=== PATIENT | male | born 1945 | race Caucasian/White ===

== ENCOUNTER → 2017-08-24 | Outpatient (CLI) | payer MEDICARE | END | disposition home or self-care (01) | LOC: ECHO 12:44 | DX: I35.0 Nonrheumatic aortic (valve) stenosis (principal); I25.10 Atherosclerotic heart disease of native coronary artery without angina pectoris; I51.9 Heart disease, unspecified | CPT/HCPCS: 93306 ==

== ENCOUNTER → 2017-09-23 | Outpatient (CLI) | payer MEDICARE | END | disposition home or self-care (01) | LOC: NM 09:29 | DX: I38 Endocarditis, valve unspecified (principal) | CPT/HCPCS: 93017 ==

== ENCOUNTER → 2018-03-22 | Outpatient (CLI) | payer MEDICARE ==
--- NOTE | 2018-03-22 11:14 | CARD ---
MR#: [id number] Date of Study: 03/22/2018 Ordering Physician: LIZETT FRIAS, Referring Physician: LIZETT FRIAS, Tech: Marisela Banuelos APPROVED REPORT EXAM: Two-dimensional and M-mode echocardiogram with Doppler and color Doppler. Other Information Quality : AverageHR: 75bpm Technically limited study due to body habitus. INDICATION Valvular Heart Disease, Former Smoker (40 years) RISK FACTORS Diabetes 2D DIMENSIONS Left Atrium(2D)4.2 (1.6-4.0cm)IVSd1.0 (0.7-1.1cm) Aortic Root(2D)3.3 (2.0-3.7cm)LVDd5.0 (3.9-5.9cm) LVOT Diameter2.0 (1.8-2.4cm)PWd1.0 (0.7-1.1cm) LVDs3.3 (2.5-4.0cm)FS (%) 34.3 % SV74.0 mlLVEF(%)63.1 (>50%) Aortic Valve AoV Peak Florentin.284.4cm/sAoV VTI62.0cm AO Peak GR.32.4mmHgLVOT Peak Florentin.114.2cm/s AO Mean GR.18mmHgAVA (VMAX)1.27cm2 Mitral Valve MV E Hgryvivd690.1cm/sMV DECEL OIWR969hg MV A Jlisweat535.8cm/sE/A Ratio0.9 Tricuspid Valve TR P. Bkjpxwvy745vc/sRAP VCBZYGDS7utFv TR Peak Gr.12fkKzXRJE88xoYr Pulmonary Vein PVa dytgoxrw168aqiv LEFT VENTRICLE The left ventricle is normal size. There is normal left ventricular wall thickness. The left ventricu lar systolic function is normal and the ejection fraction is within normal range. The Ejection Fracti on is 55-60%. Septal motion suggestive of condution defect. Otherwise, grossly normal wall motion. Tr ansmitral Doppler flow pattern is Grade I-abnormal relaxation pattern. RIGHT VENTRICLE The right ventricle is normal size. There is normal right ventricular wall thickness. The right ventr icular systolic function is normal. ATRIA The left atrium size is normal. The right atrium size is normal. Atrial septum is not well visualized . AORTIC VALVE The aortic valve is thickened and calcified. Doppler and Color Flow revealed trace aortic regurgitati on. There is moderate valvular aortic stenosis. Calculated aortic valve area is 1.2 cm2 with maximum pressure gradient of 32.36 mmHg and mean pressure gradient of 18.47 mmHg. MITRAL VALVE The mitral valve has heavy annular calcification. Doppler and Color Flow revealed trace mitral regurg itation. TRICUSPID VALVE The tricuspid valve is normal in structure and function. Doppler and Color Flow revealed trace tricus pid regurgitation. There is no tricuspid valve stenosis. PULMONIC VALVE Doppler and Color Flow revealed no pulmonic valvular regurgitation. There is no pulmonic valvular aleena nosis. GREAT VESSELS The aortic root is normal in size. The IVC is normal in size and collapses >50% with inspiration. PERICARDIAL EFFUSION There is no evidence of significant pericardial effusion. Critical Notification Critical Value: No <Conclusion> The left ventricular systolic function is normal and the ejection fraction is within normal range. Th e Ejection Fraction is 55-60%. Septal motion suggestive of condution defect. Otherwise, grossly normal wall motion. There is moderate valvular aortic stenosis. Calculated aortic valve area is 1.2 cm2 with maximum pre ssure gradient of 32.36 mmHg and mean pressure gradient of 18.47 mmHg. Technically difficult study. Signed by : Lizett Frias, Electronically Approved : 03/22/2018 11:13:46
== END | disposition home or self-care (01) ==
LOC: ECHO 08:49
PROVIDERS: ATTEND Internal Medicine Cardiovascular Disease
DX: I35.0 Nonrheumatic aortic (valve) stenosis (principal); E11.9 Type 2 diabetes mellitus without complications; Z87.891 Personal history of nicotine dependence
CPT/HCPCS: 93306

== ENCOUNTER → 2019-03-29 | Outpatient (CLI) | payer MEDICARE ==
--- NOTE | 2019-03-29 10:55 | CARD ---
MR#: [id number] Date of Study: 03/29/2019 Ordering Physician: RAGHAVENDRA NUÑEZ, Referring Physician: RAGHAVENDRA NUÑEZ Tech: Kari Maldonado RDCS APPROVED REPORT EXAM: Two-dimensional and M-mode echocardiogram with Doppler and color Doppler. Other Information Quality : Technically Limited Technically limited study due to body habitus. INDICATION Cardiac Disease: CAD Surgery/Intervention CABG: Date: 1999 2D DIMENSIONS Left Atrium(2D)5.1 (1.6-4.0cm)IVSd1.0 (0.7-1.1cm) Aortic Root(2D)3.4 (2.0-3.7cm)LVDd5.5 (3.9-5.9cm) LVOT Diameter2.1 (1.8-2.4cm)PWd0.9 (0.7-1.1cm) LVDs4.0 (2.5-4.0cm)FS (%) 27.3 % SV78.0 ml Aortic Valve AoV Peak Florentin.184.6cm/sAoV VTI40.2cm AO Peak GR.13.6mmHgLVOT Peak Florentin.102.2cm/s LVOT VTI 20.20cmAO Mean GR.8mmHg NIKI (VMAX)1.17af6JFD (VTI)1.71cm2 Mitral Valve MV E Otearabc099.2cm/sMV DECEL GGOO600na MV A Krewptid123.2cm/sMV OHD79lv E/A Ratio1.0MVA (PHT)2.68cm2 TDI E/Lateral E'18.7E/Medial E'22.6 Tricuspid Valve TR P. Ywcxywdd488ow/sRAP XCFNSJXM3jpRn TR Peak Gr.27hjGiXIVT97cbCf Pulmonary Vein S1 Vnyveqmz28.7cm/sD2 Ibienoyn19.0cm/s LEFT VENTRICLE The left ventricle is normal size. There is normal left ventricular wall thickness. The left ventricu lar systolic function is normal. The ejection fraction is 50-55%. There is normal LV segmental wall m otion. Transmitral Doppler flow pattern is Grade I-abnormal relaxation pattern. RIGHT VENTRICLE The right ventricle is normal size. The right ventricular systolic function is normal. ATRIA The left atrium is mildly dilated. The right atrium size is normal. The interatrial septum is intact with no evidence for an atrial septal defect or patent foramen ovale as noted on 2-D or Doppler imagi ng. AORTIC VALVE The aortic valve is not well visualized but appears to be functioning normally by Doppler interrogati on. Doppler and Color Flow revealed no significant aortic regurgitation. There is no significant aort ic valvular stenosis. MITRAL VALVE The mitral valve is moderately thickened but opens well. There is no evidence of mitral valve prolaps e. There is no mitral valve stenosis. Doppler and Color-flow revealed trace mitral regurgitation. TRICUSPID VALVE The tricuspid valve is normal in structure and function. Doppler and Color Flow revealed trace tricus pid regurgitation. The PA pressure was estimated at 38 mmHg. There is no tricuspid valve stenosis. PULMONIC VALVE The pulmonic valve is not well visualized. GREAT VESSELS The aortic root is normal in size. The ascending aorta is not well seen. The IVC is normal in size an d collapses >50% with inspiration. PERICARDIAL EFFUSION There is no evidence of significant pericardial effusion. Critical Notification Critical Value: No <Conclusion> The left ventricle is normal size. The left ventricular systolic function is normal. The ejection fraction is 50-55%. There is no significant aortic valvular stenosis. Doppler and Color Flow revealed no significant aortic regurgitation. Doppler and Color-flow revealed trace mitral regurgitation. Doppler and Color Flow revealed trace tricuspid regurgitation. The PA pressure was estimated at 38 mmHg. Signed by : Chidi Christensen MD Electronically Approved : 03/29/2019 10:54:43
== END | disposition home or self-care (01) ==
LOC: ECHO 08:59
PROVIDERS: ATTEND Internal Medicine Cardiovascular Disease
DX: I25.10 Atherosclerotic heart disease of native coronary artery without angina pectoris (principal)
CPT/HCPCS: 93306

== ENCOUNTER → 2020-04-17 | Outpatient (CLI) | payer MEDICARE ==
[~2020-04-17] MED LIST: PERFLUTREN PROTEIN-A MICROSPHR 0.22 MG/ML 3 ML VIAL. IV ONE
--- NOTE | 2020-04-18 07:41 | CARD ---
MR#: [id number] Date of Study: 04/17/2020 Ordering Physician: LIZETT FRIAS, Referring Physician: LIZETT FRIAS, Tech: Marisela Banuelos APPROVED REPORT EXAM: Two-dimensional and M-mode echocardiogram with Doppler, color Doppler with contrast. Other Information Quality : AverageHR: 68bpm INDICATION Cardiac Disease: CAD Echo Enhancing Agent Indication: Endocardial border delineation Agent/Amount Used: Optison 10mL Surgery/Intervention CABG: Date: 1999 Site: [place] RISK FACTORS Hypertension Hyperlipidemia Diabetes 2D DIMENSIONS Left Atrium(2D)3.9 (1.6-4.0cm)IVSd1.2 (0.7-1.1cm) Aortic Root(2D)3.6 (2.0-3.7cm)LVDd5.0 (3.9-5.9cm) LVOT Diameter2.1 (1.8-2.4cm)PWd1.1 (0.7-1.1cm) LVDs3.5 (2.5-4.0cm)FS (%) 30.9 % SV69.6 mlLVEF(%)58.3 (>50%) Aortic Valve AoV Peak Florentin.264.6cm/sAoV VTI56.0cm AO Peak GR.28.0mmHgLVOT Peak Florentin.92.6cm/s LVOT VTI 20.77cmAO Mean GR.18mmHg NIKI (VMAX)0.72rp7JLX (VTI)1.29cm2 AI P 1/2 Peio786rp Mitral Valve MV E Jlckzpif011.0cm/sMV DECEL IYCA092sb MV A Mpjfcfjk631.2cm/sMV E Mean Gr.3mmHg MV YSI19ixM/A Ratio0.9 MVA (PHT)2.46cm2 TDI E/Lateral E'15.0E/Medial E'21.2 Pulmonary Valve PV Peak Xktrfzvu073.2cm/sPV Peak Grad.4mmHg Tricuspid Valve TR P. Orgmohbh981iq/sRAP XQFCFJKH8jiNh TR Peak Gr.87elJpEUYO94jtSt Pulmonary Vein S1 Biwwiyil56.6cm/sD2 Krniebst46.1cm/s PVa izswkhws960qnie LEFT VENTRICLE The left ventricle is normal size. There is mild concentric left ventricular hypertrophy. The left ve ntricular systolic function is normal and the ejection fraction is within normal range. The Ejection Fraction is 50-55%. There is normal LV segmental wall motion. Transmitral Doppler flow pattern is Gra de I-abnormal relaxation pattern. RIGHT VENTRICLE The right ventricle is normal size. There is normal right ventricular wall thickness. The right ventr icular systolic function is normal. ATRIA The left atrium is mildly dilated. The right atrium size is normal. The interatrial septum is intact with no evidence for an atrial septal defect or patent foramen ovale as noted on 2-D or Doppler imagi ng. AORTIC VALVE The aortic valve is heavilcy calcified with restricted leaflet motion. Doppler and Color Flow reveale d trace aortic regurgitation. Calculated aortic valve area is 1.31 cm2 with maximum pressure gradient of 39 mmHg and mean pressure gradient of 24 mmHg. There is moderate valvular aortic stenosis. MITRAL VALVE The mitral valve is mildly to moderately thickened and heavily calcified. There is no evidence of stephen ral valve prolapse. There is no mitral valve stenosis. Doppler and Color-flow revealed trace mitral r egurgitation. TRICUSPID VALVE The tricuspid valve is normal in structure and function. Doppler and Color Flow revealed trace tricus pid regurgitation with an estimated PAP of 31 mmHg. There is no tricuspid valve stenosis. PULMONIC VALVE The pulmonic valve is not well visualized. Doppler and Color Flow revealed no pulmonic valvular regur gitation. There is no pulmonic valvular stenosis. GREAT VESSELS The aortic root is normal in size. The IVC is normal in size and collapses >50% with inspiration. PERICARDIAL EFFUSION There is no evidence of significant pericardial effusion. Critical Notification Critical Value: No <Conclusion> The left ventricular systolic function is normal and the ejection fraction is within normal range. Th e Ejection Fraction is 50-55%. There is normal LV segmental wall motion. Calculated aortic valve area is 1.31 cm2 with maximum pressure gradient of 39 mmHg and mean pressure gradient of 24 mmHg. There is moderate valvular aortic stenosis. Technically difficult study despite contrast use Signed by : Lizett Frias, Electronically Approved : 04/18/2020 07:41:05
== END | disposition home or self-care (01) ==
LOC: ECHO 11:09
PROVIDERS: ATTEND Internal Medicine Cardiovascular Disease
DX: I08.0 Rheumatic disorders of both mitral and aortic valves (principal); I25.10 Atherosclerotic heart disease of native coronary artery without angina pectoris
CPT/HCPCS: C8929; Q9956